=== PATIENT | male | born 1950 | race Caucasian/White ===

== ENCOUNTER 2018-09-08 08:21 | Outpatient (CLI) | payer OTHER, MEDICARE ==
[~2018-09-08 08:21] MED LIST: ANTIBIOTIC PO; CIPR500T87 PO; DIAZ10TA4 PO; HYDROCODONE PO
[2018-09-08] MEDS ORDERED: ASPI1TAB31 PO (09:04)
[2018-09-08 09:19] LABS: BASOPHILS # (AUTO) 0.06 x10^3/uL (0-0.1); BASOPHILS % (AUTO) 1 % (0-1); EOSINOPHILS # (AUTO) 0.27 x10^3/uL (0-0.4); EOSINOPHILS % (AUTO) 4 % (1-7); LYMPHOCYTES # (AUTO) 1.77 x10^3/uL (1-3.4); LYMPHOCYTES % (AUTO) 27 % (22-44); MD NO; MEAN CORPUSCULAR HEMOGLOBIN 31.8 pg (27.5-34.5); MEAN CORPUSCULAR HGB CONC 33.8 g/dL (33.2-36.2); MEAN PLATELET VOLUME 8.1 fL (7.4-10.4); MONOCYTES # (AUTO) 0.61 x10^3/uL (0.2-0.8); MONOCYTES % (AUTO) 9 % (2-9); NEUTROPHILS # (AUTO) 3.94 x10^3/uL (1.8-6.8); NEUTROPHILS % (AUTO) 59 % (42-75); PLATELET COUNT 210 x10^3/uL (130-400); RED BLOOD COUNT 5.16 x10^6/uL (4.38-5.82); RED CELL DISTRIBUTION WIDTH 13.1 % (9.4-14.8)
[2018-09-08 09:20] LABS: MICROSCOPIC NOT IND
[2018-09-08 09:24] LABS: ANION GAP 9 mmol/L (5-15); CALCIUM 8.5 mg/dL (8.5-10.1); CHLORIDE 111 mmol/L (98-107); CREATININE 0.82 mg/dL (0.7-1.3)
[2018-09-08 09:31] LABS: PROTHROMBIN TIME 10.5 Seconds (9.6-11.5)
== END 2018-09-08 23:59 | disposition home or self-care (01) ==
LOC: STAR 08:21
PROVIDERS: ATTEND Student in an Organized Health Care Education/Training Program
DX: Z01.818 Encounter for other preprocedural examination (principal); N40.1 Benign prostatic hyperplasia with lower urinary tract symptoms
CPT/HCPCS: 36415; 80048; 81003; 85025; 85610; 85730; 87086; 93005

== ENCOUNTER 2018-09-21 20:57 | Inpatient (IN) | payer OTHER, MEDICARE ==
[~2018-09-21] VITALS: Ht 177.8 cm; Wt 88.1 kg
[~2018-09-21 20:57] MED LIST changes: +ASPI1TAB31 PO; +DOCU-131 PO; +PHEN100T90 PO; +POLY17PO5 PO
--- NOTE | 2018-09-21 21:45 | NUR ---
pt to room from lobby
[2018-09-21 21:49] LABS: CULTURE INDICATED? YES; MICROSCOPIC INDICATED
--- NOTE | 2018-09-21 21:53 | NUR ---
PT HAD PROSTATE SURGERY ON 07/17 AND NOW PRESENTS WITH BLOOD IN URINE, PAIN ON URINATION, DIFFICULTY URINATING, "CANT PISS SO GOOD" TEMERATURE 100
[2018-09-21] MEDS ORDERED: SODIUM CHLORIDE FLUSH 10ML SYR IVF ONE (22:00)
--- NOTE | 2018-09-21 22:05 | NUR ---
PIV PLACED AND BLOOD DRAWN FOR LABS. PER ED PA WHO IS AT BEDSIDE, DO NOT DRAW BLOOD CULTURES AT THIS TIME.
[2018-09-21 22:18] LABS: MEAN CORPUSCULAR HEMOGLOBIN 32.8 pg (27.5-34.5); MEAN CORPUSCULAR HGB CONC 34.2 g/dL (33.2-36.2); MEAN CORPUSCULAR VOLUME 95.9 fL (81-97); MEAN PLATELET VOLUME 8.2 fL (7.4-10.4); PLATELET COUNT 239 x10^3/uL (130-400); RED BLOOD COUNT 4.39 x10^6/uL (4.38-5.82); RED CELL DISTRIBUTION WIDTH 13.4 % (9.4-14.8)
[2018-09-21] MEDS ORDERED: KETOROLAC 30 MG/1 ML IVPush ONE (22:30)
[2018-09-21 22:31] LABS: ALANINE AMINOTRANSFERASE 121 U/L (12-78); ALBUMIN 3.4 g/dL (3.4-5.0); ANION GAP 8 mmol/L (5-15); CALCIUM 8.8 mg/dL (8.5-10.1); CHLORIDE 107 mmol/L (98-107); CREATININE 1.01 mg/dL (0.7-1.3)
[2018-09-21] MEDS ORDERED: KETOROLAC 30 MG/1 ML ONE (22:32)
[2018-09-21 22:33] LABS: ALKALINE PHOSPHATASE 215 U/L (45-117); BILIRUBIN,TOTAL 0.8 mg/dL (0.2-1.0); TOTAL PROTEIN 7.1 g/dL (6.4-8.2)
--- NOTE | 2018-09-21 22:40 | NUR ---
PT RESTING ON GURNEY. ALL MONTORS APPLIED. PT MEDICATED FOR PAIN PER EMAR. BLANKET PROVIDED. NO OTHER REQUESTS AT THIS TIME.
[2018-09-21 22:46] LABS: BASOPHILS # (AUTO) 0.05 x10^3/uL (0-0.1); BASOPHILS % (AUTO) 0 % (0-1); EOSINOPHILS # (AUTO) 0.08 x10^3/uL (0-0.4); EOSINOPHILS % (AUTO) 1 % (1-7); LYMPHOCYTES # (AUTO) 1.41 x10^3/uL (1-3.4); LYMPHOCYTES % (AUTO) 10 % (22-44); MD SCAN; MONOCYTES # (AUTO) 1.93 x10^3/uL (0.2-0.8); MONOCYTES % (AUTO) 13 % (2-9); NEUTROPHILS # (AUTO) 10.91 x10^3/uL (1.8-6.8); NEUTROPHILS % (AUTO) 76 % (42-75)
--- NOTE | 2018-09-21 22:47 | NUR ---
ALL RESULTS BACK AT THIS TIME, CHART UP FOR RECHECK
[2018-09-21] MEDS ORDERED: CEFTRIAXONE PMX 1GM/50ML 50 ML IV ONE (23:00)
[2018-09-21] MEDS ORDERED: CEFTRIAXONE PMX 1GM/50ML 50 ML ONE (23:01)
--- NOTE | 2018-09-21 23:13 | NUR ---
REPORT GIVEN TO DIONI MEDINA
--- NOTE | 2018-09-21 23:21 | NUR ---
LAB IN TO DRAW BLOOD CULTURES. PT AWARE HE IS TO BE ADMITTED. WILL CONTINUE TO MONITOR.
[2018-09-21] MEDS ORDERED: AZITHROMYCIN 500 MG in SODIUM CHLORIDE 0.9% 250 ML IV ONE (23:30)
[2018-09-21] MEDS ORDERED: SODIUM CHLORIDE 0.9% 1,000ML IVBOLUS ONE (23:30)
--- NOTE | 2018-09-21 23:49 | NUR ---
REPORT TO ROSA MEDINA FOR ROOM [id number]
[2018-09-22 00:10] VITALS: BP 124/84
[2018-09-22] MEDS ORDERED: LABETALOL 5MG/ML, 20ML IVPush PRN (01:30)
[2018-09-22] MEDS ORDERED: ACETAMINOPHEN 325 MG TABLET PO PRN (01:30)
[2018-09-22] MEDS ORDERED: BISACODYL 10 MG SUPP PR PRN (01:30)
[2018-09-22] MEDS ORDERED: LACTATED RINGERS 1,000 ML IV SCH (01:30)
[2018-09-22] MEDS ORDERED: AZITHROMYCIN 500 MG in SODIUM CHLORIDE 0.9% 250 ML IV SCH (01:30)
[2018-09-22] MEDS ORDERED: CEFTRIAXONE PMX 1GM/50ML 50 ML IV SCH (01:30)
[2018-09-22] MEDS ORDERED: ONDANSETRON 2MG/ML, 2ML IVPush PRN (01:30)
[2018-09-22] MEDS ORDERED: KETOROLAC 30 MG/1 ML IV PRN (01:30)
[2018-09-22] MEDS ORDERED: POLYETHYLENE GLYCOL 17 GM PACKET PO PRN (01:30)
[2018-09-22 02:22] VITALS: BP 123/76
[2018-09-22 06:42] VITALS: BP 115/77
[2018-09-22] MEDS: ACETAMINOPHEN 325 MG TABLET PO PRN ×2 (08:29→18:09)
[2018-09-22] MEDS: SENNA/DOCUSATE TABLET PO SCH (09:00)
[2018-09-22 09:22] LABS: BASOPHILS # (AUTO) 0.04 x10^3/uL (0-0.1); BASOPHILS % (AUTO) 0 % (0-1); EOSINOPHILS # (AUTO) 0.27 x10^3/uL (0-0.4); EOSINOPHILS % (AUTO) 3 % (1-7); LYMPHOCYTES # (AUTO) 1.71 x10^3/uL (1-3.4); LYMPHOCYTES % (AUTO) 16 % (22-44); MD NO; MEAN CORPUSCULAR HEMOGLOBIN 32.1 pg (27.5-34.5); MEAN CORPUSCULAR HGB CONC 33.7 g/dL (33.2-36.2); MEAN CORPUSCULAR VOLUME 95.2 fL (81-97); MEAN PLATELET VOLUME 7.7 fL (7.4-10.4); MONOCYTES # (AUTO) 0.96 x10^3/uL (0.2-0.8); MONOCYTES % (AUTO) 9 % (2-9); NEUTROPHILS # (AUTO) 7.72 x10^3/uL (1.8-6.8); NEUTROPHILS % (AUTO) 72 % (42-75); PLATELET COUNT 192 x10^3/uL (130-400); RED BLOOD COUNT 4.01 x10^6/uL (4.38-5.82); RED CELL DISTRIBUTION WIDTH 13.3 % (9.4-14.8)
[2018-09-22 09:27] LABS: ANION GAP 9 mmol/L (5-15); CALCIUM 8.1 mg/dL (8.5-10.1); CHLORIDE 111 mmol/L (98-107); CREATININE 0.77 mg/dL (0.7-1.3)
[2018-09-22] MEDS: HEPARIN 5,000 UNITS/ML, 1ML SQ SCH ×2 (10:22→18:15)
[2018-09-22] MEDS: SODIUM CHLORIDE 0.9% 1,000 ML IV SCH (10:29)
[2018-09-22 12:59] VITALS: BP 121/78
[2018-09-22 20:26] VITALS: BP 138/98
[2018-09-23 01:14] VITALS: BP 138/87
[2018-09-23] MEDS: HEPARIN 5,000 UNITS/ML, 1ML SQ SCH ×2 (01:33→09:59)
[2018-09-23] MEDS: ACETAMINOPHEN 325 MG TABLET PO PRN (04:03)
[2018-09-23] MEDS: SODIUM CHLORIDE 0.9% 1,000 ML IV SCH (04:03)
[2018-09-23 05:55] LABS: BASOPHILS # (AUTO) 0.05 x10^3/uL (0-0.1); BASOPHILS % (AUTO) 1 % (0-1); EOSINOPHILS # (AUTO) 0.33 x10^3/uL (0-0.4); EOSINOPHILS % (AUTO) 3 % (1-7); LYMPHOCYTES # (AUTO) 1.98 x10^3/uL (1-3.4); LYMPHOCYTES % (AUTO) 20 % (22-44); MD NO; MEAN CORPUSCULAR HEMOGLOBIN 32.6 pg (27.5-34.5); MEAN CORPUSCULAR HGB CONC 33.7 g/dL (33.2-36.2); MEAN CORPUSCULAR VOLUME 96.8 fL (81-97); MEAN PLATELET VOLUME 8.1 fL (7.4-10.4); MONOCYTES # (AUTO) 0.82 x10^3/uL (0.2-0.8); MONOCYTES % (AUTO) 8 % (2-9); NEUTROPHILS # (AUTO) 6.88 x10^3/uL (1.8-6.8); NEUTROPHILS % (AUTO) 68 % (42-75); PLATELET COUNT 241 x10^3/uL (130-400); RED BLOOD COUNT 4.18 x10^6/uL (4.38-5.82); RED CELL DISTRIBUTION WIDTH 13.1 % (9.4-14.8)
[2018-09-23 06:08] LABS: ALBUMIN 2.9 g/dL (3.4-5.0); ANION GAP 7 mmol/L (5-15); CALCIUM 8.4 mg/dL (8.5-10.1); CHLORIDE 110 mmol/L (98-107)
[2018-09-23 06:13] LABS: ALANINE AMINOTRANSFERASE 76 U/L (12-78); ALKALINE PHOSPHATASE 178 U/L (45-117); BILIRUBIN,TOTAL 0.7 mg/dL (0.2-1.0); CREATININE 0.73 mg/dL (0.7-1.3); TOTAL PROTEIN 6.6 g/dL (6.4-8.2)
[2018-09-23 07:14] VITALS: BP 148/102
[2018-09-23] MEDS ORDERED: SODIUM CHLORIDE 0.9% 1,000 ML IV SCH (08:00)
[2018-09-23] MEDS ORDERED: POTASSIUM CHLORIDE 20 MEQ TAB.ER.PRT PO ONE (08:00)
[2018-09-23] MEDS: SENNA/DOCUSATE TABLET PO SCH (09:45)
[2018-09-23] MEDS ORDERED: AMOX-291 PO (09:54)
[2018-09-23] MEDS ORDERED: DOXY100C2 PO (09:54)
[2018-09-23] MEDS ORDERED: ACET325T26 PO (09:54)
== END 2018-09-23 11:15 | disposition home or self-care (01) | DRG 871 ==
LOC: ED 23:34 → EDIP 23:35 → 4WST 09-22 00:23 → 4EST 09-22 22:34 → DCLOUNGE 09-23 11:12
PROVIDERS: ADMIT Family Medicine; ATTEND Family Medicine
DX: A41.9 Sepsis, unspecified organism (principal); J15.9 Unspecified bacterial pneumonia; I10 Essential (primary) hypertension; R74.0 Nonspecific elevation of levels of transaminase and lactic acid dehydrogenase [LDH]; R33.8 Other retention of urine; N40.1 Benign prostatic hyperplasia with lower urinary tract symptoms; N30.91 Cystitis, unspecified with hematuria; R31.9 Hematuria, unspecified
CPT/HCPCS: 36415; 71045; 80048; 80053; 80074; 81001; 83605; 84145; 85025; 87040; 87077; 87086; 87186; 96374; 96375; 99291; G0378; J0456; J0696; J1644; J1885; J7030; J7050; J7120